=== PATIENT | female | born 1965 | race African-American/Black ===

== ENCOUNTER 2019-07-15 13:27 | Emergency (ER) | payer MEDICARE ==
[~2019-07-15] VITALS: Ht 167.6 cm; Wt 73.0 kg
[~2019-07-15 13:27] MED LIST: COPAJ
[2019-07-15 23:24] LABS: BASOPHILS % 0.8 % (0.0-2.0); EOSINOPHILS % 0.7 % (0.0-5.0); HEMATOCRIT. 41.9 % (36.0-48.0); HEMOGLOBIN. 14.2 g/dL (12.0-16.0); LYMPHOCYTES % 19.3 % (20.0-50.0); MEAN CORPUSCULAR HEMOGLOBIN 32.7 pg (28.0-32.0); MEAN CORPUSCULAR VOLUME 96.5 fL (81.0-99.0); MEAN PLATELET VOLUME 9.2 fl (7.4-10.4); MONOCYTES % 6.5 % (2.0-8.0); NEUTROPHILS % 72.7 % (40.0-76.0); PLATELET 217 x1000/uL (130-400); RED BLOOD CELL COUNT 4.34 mill/uL (4.2-5.4)
[2019-07-15 23:29] LABS: CHLORIDE 106 mEq/L (98-107)
[2019-07-15 23:32] LABS: PARTIAL THROMBOPLASTIN TIME 28.2 sec (23.4-31.0); PROTHROMBIN TIME 10.7 sec (9.6-11.0)
[2019-07-16] MEDS: ASPIRIN 81MG TABLET PO ONE (01:15)
[2019-07-16 03:03] VITALS: BP 107/68
== END 2019-07-16 04:49 | disposition short-term general hospital (02) ==
LOC: ER 13:27 → CANBEDREQ 07-16 05:36
DX: R55 Syncope and collapse (principal); G35 Multiple sclerosis; F12.10 Cannabis abuse, uncomplicated; Z88.8 Allergy status to other drugs, medicaments and biological substances
CPT/HCPCS: 36415; 70450; 71045; 80053; 82962; 83880; 84484; 85025; 85610; 85730; 86850; 86900; 86901; 93005; 99285; Z7610

== ENCOUNTER 2019-09-08 14:52 | Inpatient (IN) | payer MEDICARE ==
[~2019-09-08] VITALS: Ht 154.9 cm; Wt 59.0 kg
[2019-09-08] MEDS ORDERED: MORPHINE SULFATE 4 MG/ML CPJ (NOT FOR IM USE) IV STA (17:54)
[2019-09-08] MEDS ORDERED: SODIUM CHLORIDE 0.9% 1,000 ML IV ONE (17:54)
[2019-09-08] MEDS ORDERED: ONDANSETRON HCL 4MG/2ML INJ IV STA (17:54)
[2019-09-08] MEDS ORDERED: PIPERACILLIN/TAZ 3.375G PREMIX 50 ML IV ONE (18:00)
[2019-09-08] MEDS ORDERED: VANCOMYCIN 1 G PREMIX 200 ML IV ONE (18:00)
[2019-09-08 18:55] LABS: HEMATOCRIT. 44.5 % (36.0-48.0); MEAN CORPUSCULAR HEMOGLOBIN 32.5 pg (28.0-32.0); MEAN CORPUSCULAR VOLUME 96.6 fL (81.0-99.0); MEAN PLATELET VOLUME 10.1 fl (7.4-10.4); PLATELET 368 x1000/uL (130-400); RED BLOOD CELL COUNT 4.61 mill/uL (4.2-5.4); RED CELL DISTRIBUTION WIDTH 13.9 % (11.6-14.6)
[2019-09-08 19:01] LABS: PROTHROMBIN TIME 11.3 sec (9.6-11.0)
[2019-09-08 19:03] LABS: CHLORIDE 101 mEq/L (98-107)
[2019-09-08 19:17] LABS: PLATELET ESTIMATE NORMAL
[2019-09-08] MEDS ORDERED: SODIUM CHLORIDE 0.9% 1000ML BAG (SEPSIS BOLUS) IV ONE (19:45)
[2019-09-08 21:30] LABS: CLARITY URINE CLOUDY (CLEAR); COLOR URINE DARK YELLOW (YELLOW); KETONES URINE TRACE (NEGATIVE); LEUKOCYTE ESTERASE URINE NEGATIVE (NEGATIVE); NITRITE URINE NEGATIVE (NEGATIVE); OCCULT BLOOD URINE 2+ (NEGATIVE); PROTEIN URINE 1+ (NEGATIVE); SPECIFIC GRAVITY URINE 1.026 (1.005-1.030)
[2019-09-09 04:00] VITALS: BP 117/75
[2019-09-09 04:02] VITALS: BP 117/75
[2019-09-09] MEDS ORDERED: PIPERACILLIN/TAZOBACTAM 3.375 G/VIAL IV SCH (06:15)
[2019-09-09] MEDS ORDERED: NON FORMULARY PATIENT HOME MED XX SCH ×2 (06:30)
[2019-09-09] MEDS ORDERED: HYDR-4001 PO (06:42)
[2019-09-09] MEDS ORDERED: ACET650T37 PO (06:42)
[2019-09-09] MEDS ORDERED: ACETAMINOPHEN 325MG TABLET PO PRN (07:00)
[2019-09-09 08:00] VITALS: BP 98/55
[2019-09-09] MEDS ORDERED: PNEUMOCOCCAL 23-VAL P-SAC VAC 0.5 ML IM ONE (08:00)
[2019-09-09] MEDS: DEXT 5%/0.9% NACL KCL 20MEQ/L 1,000 ML IV SCH (08:40)
[2019-09-09] MEDS: ENOXAPARIN 40MG/0.4ML SYR SUBCUT SCH (08:41)
[2019-09-09] MEDS: PIPERACILLIN/TAZOBACTAM 3.375 G in DEXT 5% WATER 100 ML IV SCH ×3 (08:58→19:23)
[2019-09-09] MEDS ORDERED: INFLUENZA VIRUS VACCINE(AFLURIA) 0.5ML SYR IM ONE (10:00)
[2019-09-09] MEDS: VANCOMYCIN 750 MG PREMIX 150 ML IV SCH ×3 (10:28→23:50)
[2019-09-09 11:35] LABS: BG BASE EXCESS -0.4 mmol/L (-2.0-2.0); BG CARBOXYHEMOGLOBIN 0.3 % (0.5-1.5); BG DEOXYHEMOGLOBIN 2.1 % (0.0-5.0); BG FRACTION INSPIRED OXYGEN 21; BG HCO3 ACT 23.2 mmol/L (22.0-26.0); BG METHEMOGLOBIN 0.3 % (0.0-1.5); BG OXYGEN SATURATION 97.9 % (92.0-98.5); BG OXYHEMOGLOBIN 97.3 % (94.0-97.0); BG PCO2 34.4 mmHg (35.0-45.0); BG PH 7.447 (7.350-7.450); BG SAMPLE SITE RIGHT BRACHIAL; BG VENT MODE ROOM AIR
[2019-09-09 12:00] VITALS: BP 99/62
[2019-09-09] MEDS ORDERED: ASCORBIC ACID 500 MG TABLET PO SCH (12:30)
[2019-09-09] MEDS: ZINC SULFATE 220 MG ( 50 ) CAPSULE PO SCH (13:32)
[2019-09-09] MEDS: ASCORBIC ACID 500 MG TABLET PO SCH (13:32)
[2019-09-09 13:44] LABS: BASOPHILS % 0.3 % (0.0-2.0); EOSINOPHILS % 0.1 % (0.0-5.0); HEMATOCRIT. 32.5 % (36.0-48.0); HEMOGLOBIN. 11.1 g/dL (12.0-16.0); LYMPHOCYTES % 9.2 % (20.0-50.0); MEAN CORPUSCULAR HEMOGLOBIN 32.8 pg (28.0-32.0); MEAN CORPUSCULAR VOLUME 96.3 fL (81.0-99.0); MEAN PLATELET VOLUME 9.1 fl (7.4-10.4); MONOCYTES % 6.3 % (2.0-8.0); NEUTROPHILS % 84.1 % (40.0-76.0); PLATELET 303 x1000/uL (130-400); RED BLOOD CELL COUNT 3.37 mill/uL (4.2-5.4); RED CELL DISTRIBUTION WIDTH 13.8 % (11.6-14.6)
[2019-09-09 14:04] LABS: CHLORIDE 106 mEq/L (98-107)
[2019-09-09 16:00] VITALS: BP 97/55
[2019-09-09] MEDS ORDERED: LORAZEPAM 2MG/ML CPJ IV PRN (17:45)
[2019-09-09] MEDS ORDERED: ONDANSETRON HCL 4MG/2ML INJ IV PRN (17:45)
[2019-09-09] MEDS ORDERED: IPRATROPIUM/ALBUTEROL 0.5-3(2.5)MG/3ML NEB HHN PRN (17:45)
[2019-09-09] MEDS ORDERED: GUAIFENESIN 200MG/10ML SUGAR FREE UDC PO PRN (17:45)
[2019-09-09] MEDS ORDERED: HYDRALAZINE 20MG/ML VIAL IV PRN (17:45)
[2019-09-09] MEDS ORDERED: LACTULOSE 20G/30ML UDC PO PRN (17:45)
[2019-09-09] MEDS: HYDROCODONE/ACETAMINOPHEN 5/325MG TABLET PO PRN ×2 (19:23→23:51)
[2019-09-09 20:00] VITALS: BP 96/53
[2019-09-10] VITALS: BP 112/66
[2019-09-10] MEDS: PIPERACILLIN/TAZOBACTAM 3.375 G in DEXT 5% WATER 100 ML IV SCH ×4 (01:31→20:30)
[2019-09-10 04:00] VITALS: BP 126/76
[2019-09-10 06:28] LABS: CHLORIDE 104 mEq/L (98-107)
[2019-09-10 06:35] LABS: LDL CHOLESTEROL 114 mg/dL (5-100)
[2019-09-10 06:37] LABS: HDL CHOLESTEROL 38 mg/dL (40-59); T4 FREE 1.16 ng/dL (0.76-1.46)
[2019-09-10 06:54] LABS: HEPATITIS B SURFACE ANTIGEN NEGATIVE
[2019-09-10 07:01] LABS: VITAMIN B12 SERUM 504 pg/mL (211-911)
[2019-09-10 07:24] LABS: HEPATITIS A AB IGM NEGATIVE (NEGATIVE)
[2019-09-10] MEDS: ASCORBIC ACID 500 MG TABLET PO SCH (08:46)
[2019-09-10] MEDS: ZINC SULFATE 220 MG ( 50 ) CAPSULE PO SCH (08:46)
[2019-09-10] MEDS: ENOXAPARIN 40MG/0.4ML SYR SUBCUT SCH (08:46)
[2019-09-10] MEDS: HYDROCODONE/ACETAMINOPHEN 5/325MG TABLET PO PRN ×3 (08:54→22:43)
[2019-09-10] MEDS ORDERED: GADOBENATE DIMEGLUMINE 529 MG/ML 10ML IV ONE (08:57)
[2019-09-10] MEDS ORDERED: POTASSIUM CHLORIDE 20MEQ TABLET SR PO NR ×2 (10:15→14:00)
[2019-09-10] MEDS: DEXT 5%/0.9% NACL KCL 20MEQ/L 1,000 ML IV SCH ×2 (10:30→20:31)
[2019-09-10] MEDS: VANCOMYCIN 750 MG PREMIX 150 ML IV SCH (10:30)
[2019-09-10 12:00] VITALS: BP 100/56
[2019-09-10 16:00] VITALS: BP 106/61
[2019-09-10 20:00] VITALS: BP 117/67
[2019-09-10] MEDS: MEGESTROL ACETATE 400 MG/10 ML UDC PO SCH (20:31)
[2019-09-10] MEDS: VANCOMYCIN 1 G PREMIX 200 ML IV SCH (22:28)
[2019-09-11] VITALS: BP 104/63
[2019-09-11] MEDS ORDERED: POTASSIUM CHLORIDE INJ 40 MEQ in DEXT 5% WATER 250 ML IV NR (02:00)
[2019-09-11] MEDS: PIPERACILLIN/TAZOBACTAM 3.375 G in DEXT 5% WATER 100 ML IV SCH ×4 (03:20→20:38)
[2019-09-11 04:00] VITALS: BP 110/72
[2019-09-11 08:00] VITALS: BP 116/68
[2019-09-11] MEDS ORDERED: LIDOCAINE HCL 1% 20ML VIAL (Pyxis) INJ ONE (08:30)
[2019-09-11] MEDS: ENOXAPARIN 40MG/0.4ML SYR SUBCUT SCH (09:00)
[2019-09-11] MEDS: ASCORBIC ACID 500 MG TABLET PO SCH (09:04)
[2019-09-11] MEDS: ZINC SULFATE 220 MG ( 50 ) CAPSULE PO SCH (09:04)
[2019-09-11] MEDS: MEGESTROL ACETATE 400 MG/10 ML UDC PO SCH (09:04)
[2019-09-11] MEDS: VANCOMYCIN 1 G PREMIX 200 ML IV SCH ×2 (12:04→22:27)
[2019-09-11] MEDS: DEXT 5%/0.9% NACL KCL 20MEQ/L 1,000 ML IV SCH ×2 (12:05→22:27)
[2019-09-11 12:12] VITALS: BP 101/55
[2019-09-11 13:09] LABS: HEMATOCRIT 28.3 % (36.0-48.0); HEMOGLOBIN 9.6 g/dL (12.0-16.0); MEAN CORPUSCULAR HEMOGLOBIN 32.3 pg (28.0-32.0); PLATELET 309 x1000/uL (130-400); RED BLOOD CELL COUNT 2.98 mill/uL (4.2-5.4); RED CELL DISTRIBUTION WIDTH 13.6 % (11.6-14.6)
[2019-09-11 13:17] LABS: CHLORIDE 112 mEq/L (98-107)
[2019-09-11] MEDS: HYDROCODONE/ACETAMINOPHEN 5/325MG TABLET PO PRN ×2 (15:58→22:36)
[2019-09-11 16:19] VITALS: BP 110/60
[2019-09-11 20:00] VITALS: BP 98/48
[2019-09-12] VITALS: BP 105/60
[2019-09-12] MEDS: PIPERACILLIN/TAZOBACTAM 3.375 G in DEXT 5% WATER 100 ML IV SCH ×4 (02:35→21:16)
[2019-09-12 04:00] VITALS: BP 95/53
[2019-09-12 06:21] LABS: BASOPHILS % 0.6 % (0.0-2.0); EOSINOPHILS % 2.2 % (0.0-5.0); HEMATOCRIT. 25.4 % (36.0-48.0); HEMOGLOBIN. 8.7 g/dL (12.0-16.0); LYMPHOCYTES % 15.9 % (20.0-50.0); MEAN CORPUSCULAR HEMOGLOBIN 32.3 pg (28.0-32.0); MEAN CORPUSCULAR VOLUME 94.8 fL (81.0-99.0); MEAN PLATELET VOLUME 8.3 fl (7.4-10.4); MONOCYTES % 7.4 % (2.0-8.0); NEUTROPHILS % 73.9 % (40.0-76.0); PLATELET 292 x1000/uL (130-400); RED BLOOD CELL COUNT 2.68 mill/uL (4.2-5.4); RED CELL DISTRIBUTION WIDTH 13.7 % (11.6-14.6)
[2019-09-12 07:08] LABS: CHLORIDE 109 mEq/L (98-107)
[2019-09-12 08:00] VITALS: BP 99/55
[2019-09-12] MEDS: ZINC SULFATE 220 MG ( 50 ) CAPSULE PO SCH (08:21)
[2019-09-12] MEDS: MEGESTROL ACETATE 400 MG/10 ML UDC PO SCH (08:21)
[2019-09-12] MEDS: HYDROCODONE/ACETAMINOPHEN 5/325MG TABLET PO PRN (08:21)
[2019-09-12] MEDS: ASCORBIC ACID 500 MG TABLET PO SCH (08:21)
[2019-09-12] MEDS: ENOXAPARIN 40MG/0.4ML SYR SUBCUT SCH (08:22)
[2019-09-12] MEDS: VANCOMYCIN 1 G PREMIX 200 ML IV SCH ×2 (10:30→21:16)
[2019-09-12 12:00] VITALS: BP 114/66
[2019-09-12 16:00] VITALS: BP 94/54
[2019-09-12] MEDS: DEXT 5%/0.9% NACL KCL 20MEQ/L 1,000 ML IV SCH ×2 (18:11→23:30)
[2019-09-12 20:00] VITALS: BP 114/69
[2019-09-13] VITALS: BP 112/61
[2019-09-13] MEDS: PIPERACILLIN/TAZOBACTAM 3.375 G in DEXT 5% WATER 100 ML IV SCH ×4 (01:54→21:53)
[2019-09-13] MEDS: HYDROCODONE/ACETAMINOPHEN 5/325MG TABLET PO PRN ×2 (02:17→13:35)
[2019-09-13 04:00] VITALS: BP 104/64
[2019-09-13 06:18] LABS: BASOPHILS % 0.5 % (0.0-2.0); EOSINOPHILS % 2.4 % (0.0-5.0); HEMATOCRIT. 26.3 % (36.0-48.0); HEMOGLOBIN. 9.1 g/dL (12.0-16.0); LYMPHOCYTES % 15.6 % (20.0-50.0); MEAN CORPUSCULAR HEMOGLOBIN 32.9 pg (28.0-32.0); MEAN CORPUSCULAR VOLUME 94.8 fL (81.0-99.0); MONOCYTES % 7.5 % (2.0-8.0); PLATELET 305 x1000/uL (130-400); RED BLOOD CELL COUNT 2.77 mill/uL (4.2-5.4); RED CELL DISTRIBUTION WIDTH 14.1 % (11.6-14.6)
[2019-09-13 08:00] LABS: CHLORIDE 110 mEq/L (98-107)
[2019-09-13] MEDS: MEGESTROL ACETATE 400 MG/10 ML UDC PO SCH ×2 (09:00→13:34)
[2019-09-13] MEDS: ENOXAPARIN 40MG/0.4ML SYR SUBCUT SCH (09:00)
[2019-09-13] MEDS: ASCORBIC ACID 500 MG TABLET PO SCH ×2 (09:00→13:34)
[2019-09-13] MEDS: ZINC SULFATE 220 MG ( 50 ) CAPSULE PO SCH ×2 (09:00→13:34)
[2019-09-13] MEDS: DEXT 5%/0.9% NACL KCL 20MEQ/L 1,000 ML IV SCH (11:07)
[2019-09-13] MEDS: VANCOMYCIN 1 G PREMIX 200 ML IV SCH ×2 (12:40→23:13)
[2019-09-13 17:00] VITALS: BP 125/70
[2019-09-13] MEDS ORDERED: BUPIVACAINE HCL/PF 0.5% (5MG/ML) 10ML ONE (17:46)
[2019-09-13] MEDS ORDERED: LIDOCAINE HCL 1% 20ML VIAL (Pyxis) INJ ONE (17:46)
[2019-09-13] MEDS ORDERED: BACITRACIN 50,000 UNITS/VIAL ONE (17:47)
[2019-09-13] MEDS ORDERED: SODIUM CHLORIDE 0.9% 10ML VIAL ONE (18:38)
[2019-09-13] MEDS ORDERED: FENTANYL CITRATE/PF 50MCG/ML 2ML VIAL ONE (18:38)
[2019-09-13] MEDS ORDERED: ROCURONIUM BROMIDE 10MG/ML VIAL 5ML IV ONE (18:38)
[2019-09-13] MEDS ORDERED: ONDANSETRON HCL 4MG/2ML INJ ONE (18:38)
[2019-09-13] MEDS ORDERED: SUCCINYLCHOLINE CHLORIDE 200MG/10ML IV ONE (18:38)
[2019-09-13] MEDS ORDERED: LIDOCAINE HCL/PF 1% 10 MG/ML 5ML VIAL ONE (18:38)
[2019-09-13] MEDS ORDERED: GLYCOPYRROLATE 0.2 MG/ML 2ML VIAL ONE (18:38)
[2019-09-13] MEDS ORDERED: MIDAZOLAM HCL 2 MG/2 ML VIAL ONE (18:38)
[2019-09-13] MEDS ORDERED: NEOSTIGMINE METHYLSULFATE 1MG/ML 10 ML VIAL ONE (18:38)
[2019-09-13] MEDS ORDERED: METOCLOPRAMIDE HCL 10MG/2ML VIAL ONE (18:38)
[2019-09-13] MEDS ORDERED: PROPOFOL 200MG/20ML VIAL IV ONE (18:38)
[2019-09-13] MEDS ORDERED: PHENYLEPHRINE HCL 10 MG/ML 1ML (IV VIAL) IV ONE (18:55)
[2019-09-13] MEDS ORDERED: HYDROMORPHONE HCL/PF 2MG/ML CPJ IV PRN (19:30)
[2019-09-13] MEDS ORDERED: ONDANSETRON HCL 4MG/2ML INJ IV PRN (19:30)
[2019-09-13] MEDS ORDERED: MORPHINE SULFATE 2 MG/ML CPJ (NOT FOR IM USE) IV PRN (19:30)
[2019-09-13] MEDS ORDERED: SODIUM CHLORIDE 0.9% 1,000 ML IV ONE (19:35)
[2019-09-13 20:00] VITALS: BP 132/84
[2019-09-14] VITALS (7 sets, daily range): BP systolic 104–115; BP diastolic 50–71
[2019-09-14] MEDS: PIPERACILLIN/TAZOBACTAM 3.375 G in DEXT 5% WATER 100 ML IV SCH ×4 (03:16→21:10)
[2019-09-14 06:43] LABS: HEMATOCRIT 27.9 % (36.0-48.0); HEMOGLOBIN 9.7 g/dL (12.0-16.0); MEAN CORPUSCULAR HEMOGLOBIN 33.1 pg (28.0-32.0); MEAN CORPUSCULAR VOLUME 94.9 fL (81.0-99.0); PLATELET 330 x1000/uL (130-400); RED BLOOD CELL COUNT 2.94 mill/uL (4.2-5.4); RED CELL DISTRIBUTION WIDTH 13.9 % (11.6-14.6)
[2019-09-14 07:34] LABS: CHLORIDE 108 mEq/L (98-107)
[2019-09-14] MEDS: ENOXAPARIN 40MG/0.4ML SYR SUBCUT SCH (09:19)
[2019-09-14] MEDS: DEXT 5%/0.9% NACL KCL 20MEQ/L 1,000 ML IV SCH ×2 (09:20→12:02)
[2019-09-14] MEDS ORDERED: POTASSIUM CHLORIDE 20MEQ TABLET SR PO SCH (10:15)
[2019-09-14] MEDS: VANCOMYCIN 1 G PREMIX 200 ML IV SCH ×2 (10:54→23:36)
[2019-09-14] MEDS ORDERED: LACTULOSE 20G/30ML UDC PO NR ×2 (11:15→12:15)
[2019-09-14] MEDS ORDERED: HYDROCODONE/ACETAMINOPHEN 5/325MG TABLET PO PRN (11:15)
[2019-09-14] MEDS: HYDROCODONE/ACETAMINOPHEN 5/325MG TABLET PO PRN ×2 (11:56→21:11)
[2019-09-14] MEDS: DILTIAZEM HCL 30MG TABLET PO SCH ×2 (11:57→18:00)
[2019-09-14] MEDS ORDERED: DOCUSATE SODIUM 250MG CAPSULE PO NR (12:15)
[2019-09-14 15:42] LABS: CLARITY URINE CLEAR (CLEAR); COLOR URINE YELLOW (YELLOW); KETONES URINE NEGATIVE (NEGATIVE); LEUKOCYTE ESTERASE URINE TRACE (NEGATIVE); NITRITE URINE NEGATIVE (NEGATIVE); OCCULT BLOOD URINE NEGATIVE (NEGATIVE); PROTEIN URINE NEGATIVE (NEGATIVE); SPECIFIC GRAVITY URINE 1.009 (1.005-1.030)
[2019-09-15] VITALS: BP 113/71
[2019-09-15] MEDS: DILTIAZEM HCL 30MG TABLET PO SCH ×3 (00:46→12:00)
[2019-09-15] MEDS: DEXT 5%/0.9% NACL KCL 20MEQ/L 1,000 ML IV SCH (03:23)
[2019-09-15] MEDS: PIPERACILLIN/TAZOBACTAM 3.375 G in DEXT 5% WATER 100 ML IV SCH ×2 (03:23→09:51)
[2019-09-15 04:00] VITALS: BP 128/80
[2019-09-15 06:48] LABS: HEMATOCRIT 27.7 % (36.0-48.0); HEMOGLOBIN 9.4 g/dL (12.0-16.0); MEAN CORPUSCULAR HEMOGLOBIN 32.1 pg (28.0-32.0); PLATELET 341 x1000/uL (130-400); RED BLOOD CELL COUNT 2.91 mill/uL (4.2-5.4); RED CELL DISTRIBUTION WIDTH 14.1 % (11.6-14.6)
[2019-09-15 07:02] LABS: CHLORIDE 108 mEq/L (98-107)
[2019-09-15 08:00] VITALS: BP 98/57
[2019-09-15] MEDS ORDERED: DOCUSATE SODIUM SUGAR FREE 100MG/10ML UDC NG SCH (09:00)
[2019-09-15] MEDS: ASCORBIC ACID 500 MG TABLET PO SCH (09:52)
[2019-09-15] MEDS: ZINC SULFATE 220 MG ( 50 ) CAPSULE PO SCH (09:52)
[2019-09-15] MEDS: MEGESTROL ACETATE 400 MG/10 ML UDC PO SCH (09:53)
[2019-09-15] MEDS: ENOXAPARIN 40MG/0.4ML SYR SUBCUT SCH (09:53)
[2019-09-15] MEDS: VANCOMYCIN 1 G PREMIX 200 ML IV SCH (09:54)
[2019-09-15] MEDS ORDERED: BISACODYL 10MG SUPP PR NR (11:30)
[2019-09-15 12:00] VITALS: BP 106/45
[2019-09-15] MEDS: HYDROCODONE/ACETAMINOPHEN 5/325MG TABLET PO PRN (12:23)
[2019-09-15 13:26] VITALS: BP 106/45
== END 2019-09-15 13:55 | DRG 710 ==
LOC: ER 14:52 → 5WST 21:22 → EDBEDREQ 21:31 → EDBEDREQTM 21:31 → ENRESERV 09-09 02:43
PROVIDERS: ADMIT Internal Medicine; ATTEND Internal Medicine
PROC: 05HY33Z Insertion of Infusion Device into Upper Vein, Percutaneous Approach (ICD-10-PCS; 2019-09-11)
PROC: B54MZZA Ultrasonography of Right Upper Extremity Veins, Guidance (ICD-10-PCS; 2019-09-11)
PROC: B51M1ZA Fluoroscopy of Right Upper Extremity Veins using Low Osmolar Contrast, Guidance (ICD-10-PCS; 2019-09-11)
PROC: 0KBP0ZZ Excision of Left Hip Muscle, Open Approach (ICD-10-PCS; principal; 2019-09-13)
PROC: 0KBN0ZZ Excision of Right Hip Muscle, Open Approach (ICD-10-PCS; 2019-09-13)
DX: A41.9 Sepsis, unspecified organism (principal); G93.41 Metabolic encephalopathy; L89.159 Pressure ulcer of sacral region, unspecified stage; E44.0 Moderate protein-calorie malnutrition; R53.2 Functional quadriplegia; E87.2 Acidosis; R64 Cachexia; E83.52 Hypercalcemia; E87.1 Hypo-osmolality and hyponatremia; E87.6 Hypokalemia; G35 Multiple sclerosis; G89.4 Chronic pain syndrome; M79.7 Fibromyalgia; R74.0 Nonspecific elevation of levels of transaminase and lactic acid dehydrogenase [LDH]; G90.8 Other disorders of autonomic nervous system; K82.4 Cholesterolosis of gallbladder; N20.0 Calculus of kidney; N39.0 Urinary tract infection, site not specified; Z74.01 Bed confinement status; Z98.891 History of uterine scar from previous surgery; Z88.8 Allergy status to other drugs, medicaments and biological substances; Z79.899 Other long term (current) drug therapy; Z68.24 Body mass index [BMI] 24.0-24.9, adult
CPT/HCPCS: 36415; 36573; 36600; 70553; 71045; 74176; 76700; 76937; 80048; 80053; 80061; 80202; 81003; 82140; 82375; 82607; 82805; 83605; 83735; 84145; 84439; 84443; 84484; 85025; 85027; 86705; 86709; 86803; 87070; 87075; 87340; 87804; 90686; 90732; 93005; 93970; 97162; 99291; A9577; C1725; J0330; J1642; J1650; J2060; J2250; J2270; J2370; J2405; J2543; J2704; J2710; J2765; J3010; J3370; J3480; J3490; J7030; J7060